=== PATIENT | male | born 1970 | race African-American/Black ===

== ENCOUNTER 2018-06-14 09:51 | Emergency (ER) | payer BC, OTHER ==
[~2018-06-14] VITALS: Ht 188 cm; Wt 99.8 kg
[2018-06-14] MEDS ORDERED: LIDOCAINE 1% HCL (LOCAL ANESTH.) INJ 20ML MDV IJ ONE (13:00)
[2018-06-14] MEDS ORDERED: HYDROcodone-ACET 10/325MG TAB PO ONE (13:15)
[2018-06-14 15:05] VITALS: BP 142/89
== END 2018-06-14 15:08 | disposition home or self-care (01) ==
LOC: ER 09:51
DX: L02.31 Cutaneous abscess of buttock (principal); E11.9 Type 2 diabetes mellitus without complications; F17.290 Nicotine dependence, other tobacco product, uncomplicated; F12.10 Cannabis abuse, uncomplicated
CPT/HCPCS: 10060; 82962; 99283; J2001

== ENCOUNTER 2018-06-26 10:33 | Emergency (ER) | payer BC ==
[~2018-06-26] VITALS: Ht 188 cm; Wt 81.6 kg
[2018-06-26 10:39] VITALS: BP 129/70
== END 2018-06-26 11:17 | disposition home or self-care (01) ==
LOC: ER 10:39
DX: L02.31 Cutaneous abscess of buttock (principal); F17.210 Nicotine dependence, cigarettes, uncomplicated; F17.290 Nicotine dependence, other tobacco product, uncomplicated